=== PATIENT | female | born 1985 | race Caucasian/White ===

== ENCOUNTER 2020-06-15 12:51 | Emergency (ER) | payer SELFPAY ==
[2020-06-15] MEDS ORDERED: KETOROLAC 30 MG/ML INJ ONE (14:11)
[2020-06-15] MEDS ORDERED: NA CHLORIDE 0.9% 100 ML IV ONE (14:11)
[2020-06-15] MEDS ORDERED: NA CHLORIDE 0.9% 1,000 ML ONE (14:11)
[2020-06-15] MEDS ORDERED: METOCLOPRAMIDE 10 MG/2mL INJ ONE (14:11)
[2020-06-15] MEDS ORDERED: DIPHENHYDRAMINE 50 MG/ML VIAL ONE (14:11)
--- NOTE | 2020-06-15 14:20 | RAD REPORT ---
EXAM DESCRIPTION: CT - Head Brain Wo Cont - 06/15/2020 2:03 pm CLINICAL HISTORY: Headache COMPARISON: None. TECHNIQUE: Computed axial tomography of the head was obtained. IV contrast was not requested. All CT scans are performed using dose optimization technique as appropriate and may include automated exposure control or mA/KV adjustment according to patient size. FINDINGS: An intracranial bleed is not seen . The ventricles are normal in caliber. No extra-axial fluid collection is noted. Fluid within the sinuses/ mastoids is not seen. IMPRESSION: No acute intracranial abnormality is seen. If patient's symptoms persist MRI of the bra in would be recommended.
--- NOTE | 2020-06-15 14:54 | ER ---
Nurse's Notes [facility] Name: Arianna Titus Age: 35 yrs Sex: Female : 1985 Arrival Date: 06/15/2020 Time: 12:54 Bed 19 Private MD: Diagnosis: Headache Presentation: 06/15 13:04 Chief complaint: Patient states: [place] for 3 days. N/V this am. No fever. States her heart ll1 was racing this morning. Coronavirus screen: Client denies travel out of the [place] in the last 14 days. At this time, the client does not indicate any symptoms associated with coronavirus-19. Ebola Screen: Patient denies travel to an Ebola-affected area in the 21 days before illness onset. Initial Sepsis Screen: Does the patient meet any 2 criteria? HR > 90 bpm. Risk Assessment: Do you want to hurt yourself or someone else? Patient reports no desire to harm self or others. Onset of symptoms was June 13, 2020. 13:04 Method Of Arrival: Ambulatory ll1 13:04 Acuity: AARON 3 ll1 15:00 Initial Sepsis Screen: Does the patient have a suspected source of infection? No. ph Patient's initial sepsis screen is negative. Triage Assessment: 15:43 Headache History: The patient has had previous headaches and this one is similar to ph previous episodes. Pain: Also complains of nausea, photophobia. Historical: - Allergies: 13:03 No Known Allergies; ll1 - PSHx: 13:03 ; ll1 - Immunization history:: Flu vaccine is not up to date. - Social history:: Smoking status: Patient reports the use of cigarette tobacco products, smokes one-half pack cigarettes per day. Screenin:28 Abuse screen: Denies threats or abuse. Denies injuries from another. Nutritional ph screening: No deficits noted. Tuberculosis screening: No symptoms or risk factors identified. Fall Risk None identified. Assessment: 14:28 General: Appears in no apparent distress. uncomfortable, slender, well groomed, ph Behavior is calm, cooperative, appropriate for age, Denies fever, feeling ill. Pain: Complains of pain in forehead, right latter day and left latter day. Neuro: Level of Consciousness is awake, alert, obeys commands, Oriented to person, place, time, situation. Neuro: Reports headache since 3 days ago photophobia. Cardiovascular:. Cardiovascular: Capillary refill < 3 seconds in bilateral fingers Patient's skin is warm and dry. Respiratory: No deficits noted. GI: Reports nausea, vomiting, Patient currently denies abdominal pain. Derm: Skin is intact, is healthy with good turgor, Skin is pink, warm \T\ dry. Musculoskeletal: Circulation, motion, and sensation intact. Range of motion: intact in all extremities. 15:42 Reassessment: Patient appears in no apparent distress at this time. Patient and/or ph family updated on plan of care and expected duration. Pain level reassessed. Patient is alert, oriented x 3, equal unlabored respirations, skin warm/dry/pink. Patient states feeling better. Patient states symptoms have improved. Vital Signs: 13:04 BP 120 / 89; Pulse 120; Resp 18; Temp 98.4; Pulse Ox 99% ; Weight 54.43 kg; Height 5 ll1 ft. 3 in. (160.02 cm); Pain 9/10; 14:29 BP 113 / 88; Pulse 81; Resp 18; Pulse Ox 98% on R/A; ph 15:42 BP 111 / 78; Pulse 85; Resp 18; Temp 97.6; Pulse Ox 99% on R/A; ph 13:04 Body Mass Index 21.26 (54.43 kg, 160.02 cm) ll1 ED Course: 12:54 Patient arrived in ED. ds1 13:06 Triage completed. ll1 13:06 Arm band placed on Patient placed in an exam room, on a stretcher. ll1 13:11 Armin Kilgore NP is PHCP. pm1 13:11 Lorne Card MD is Attending Physician. pm1 13:11 Bozena Mcintyre, YFN is Primary Nurse. ph 14:04 CT Head Brain wo Cont In Process Unspecified. EDMS 14:29 Patient has correct armband on for positive identification. Bed in low position. Call ph light in reach. Side rails up X 1. Pulse ox on. NIBP on. Door closed. Noise minimized. Lights dimmed. Warm blanket given. Pillow given. 14:30 Inserted saline lock: 20 gauge in right antecubital area, using aseptic technique. ph 15:42 No provider procedures requiring assistance completed. IV discontinued, intact, No ph redness/swelling at site. Pressure dressing applied. Administered Medications: 14:20 Drug: NS 0.9% 1000 ml Route: IV; Rate: 1000 ml; Site: right antecubital; ph 15:30 Follow up: Response: No adverse reaction; IV Status: Completed infusion; IV Intake: ph 1000ml 14:21 Drug: Benadryl 25 mg Route: IVP; Site: right antecubital; ph 15:00 Follow up: Response: No adverse reaction ph 14:23 Drug: TORadol 30 mg Route: IVP; Site: right antecubital; ph 15:00 Follow up: Response: No adverse reaction; Pain is decreased ph 14:23 Drug: Reglan 10 mg Route: IVP; Site: right antecubital; ph 15:00 Follow up: Response: No adverse reaction ph 15:30 Drug: Decadron - Dexamethasone 10 mg Route: IVP; Site: right antecubital; ph 15:35 Follow up: Response: No adverse reaction ph Intake: 15:30 IV: 1000ml; Total: 1000ml. ph Outcome: 14:53 Discharge ordered by pm1 15:43 Discharged to home ambulatory. ph 15:43 Condition: improved 15:43 Discharge instructions given to patient, Instructed on discharge instructions, follow up and referral plans. Demonstrated understanding of instructions, follow-up care. 15:43 Patient left the ED. ph Signatures: Dispatcher [employer] [facility] Genia Preston ds1 Bozena Mcintyre RN RN ph Armin Kilgore, JO SAFETY INTERN pm1 Kenny Pierre RN RN ll1
--- NOTE | 2020-06-15 14:54 | EDPHYS ---
Physician Documentation [facility] Name: Arianna Titus Age: 35 yrs Sex: Female : 1985 Arrival Date: 06/15/2020 Time: 12:54 Bed 19 Private MD: ED Physician Lorne aCrd HPI: 06/15 14:28 This 35 yrs old Female presents to ER via Ambulatory with complaints of pm1 Headache, Nausea. 14:28 The patient complains of pain to the top of head, forehead, right yazidi and left pm1 yazidi. The patient describes the headache as aching. Onset: The symptoms/episode began/occurred 3 day(s) ago. Associated signs and symptoms: Pertinent positives: nausea, Pertinent negatives: fever, neck stiffness, paresthesias, vomiting, weakness. Severity of symptoms: in the emergency department the pain is unchanged. Headache History: Other lasting longer than normal. Typically Excedrin can break it but has not worked this time. The symptoms are alleviated by Darkened room, the symptoms are aggravated by lights, noise. The patient has experienced similar episodes in the past, several times. The patient has not recently seen a physician. Historical: - Allergies: 13:03 No Known Allergies; ll1 - PSHx: 13:03 ; ll1 - Immunization history:: Flu vaccine is not up to date. - Social history:: Smoking status: Patient reports the use of cigarette tobacco products, smokes one-half pack cigarettes per day. ROS: 14:28 Constitutional: Negative for fever, chills, and weight loss, Cardiovascular: Negative pm1 for chest pain, palpitations, and edema, Respiratory: Negative for shortness of breath, cough, wheezing, and pleuritic chest pain, Abdomen/GI: Negative for abdominal pain, nausea, vomiting, diarrhea, and constipation, Back: Negative for injury and pain, MS/Extremity: Negative for injury and deformity, Skin: Negative for injury, rash, and discoloration. 14:28 Neuro: Positive for headache. Exam: 14:28 Constitutional: This is a well developed, well nourished patient who is awake, alert, pm1 and in no acute distress. Head/Face: Normocephalic, atraumatic. Neck: Trachea midline, no thyromegaly or masses palpated, and no cervical lymphadenopathy. Supple, full range of motion without nuchal rigidity, or vertebral point tenderness. No Meningismus. 14:28 Back: No spinal tenderness. No costovertebral tenderness. Full range of motion. Skin: Warm, dry with normal turgor. Normal color with no rashes, no lesions, and no evidence of cellulitis. MS/ Extremity: Pulses equal, no cyanosis. Neurovascular intact. Full, normal range of motion. 14:28 Cardiovascular: Exam negative for acute changes, Rate: normal, Rhythm: regular, Pulses: no pulse deficits are appreciated. 14:28 Respiratory: Exam negative for acute changes, respiratory distress, shortness of breath. 14:28 Abdomen/GI: Exam negative for acute changes, Inspection: abdomen appears normal, Palpation: abdomen is soft and non-tender, in all quadrants. 14:28 Neuro: Exam negative for acute changes, Orientation: is normal, Mentation: is normal, Motor: is normal, moves all fours. Vital Signs: 13:04 BP 120 / 89; Pulse 120; Resp 18; Temp 98.4; Pulse Ox 99% ; Weight 54.43 kg; Height 5 ll1 ft. 3 in. (160.02 cm); Pain 9/10; 14:29 BP 113 / 88; Pulse 81; Resp 18; Pulse Ox 98% on R/A; ph 15:42 BP 111 / 78; Pulse 85; Resp 18; Temp 97.6; Pulse Ox 99% on R/A; ph 13:04 Body Mass Index 21.26 (54.43 kg, 160.02 cm) ll1 MDM: 13:43 Patient medically screened. pm1 14:49 Data reviewed: vital signs. Data interpreted: Pulse oximetry: on room air is 98 %. pm1 Interpretation: normal. 14:49 Counseling: I had a detailed discussion with the patient and/or guardian regarding: the pm1 historical points, exam findings, and any diagnostic results supporting the discharge/admit diagnosis, radiology results, the need for outpatient follow up, to return to the emergency department if symptoms worsen or persist or if there are any questions or concerns that arise at home. 14:49 ED course: 6/10 pain. Would like additional pain medications. Limited by rehabilitation pm1 drug limitations. Will give the patient decadron. 06/15 13:48 Order name: CT Head Brain wo Cont; Complete Time: 14:49 pm1 06/15 13:48 Order name: IV Saline Lock; Complete Time: 14:26 pm1 Administered Medications: 14:20 Drug: NS 0.9% 1000 ml Route: IV; Rate: 1000 ml; Site: right antecubital; ph 15:30 Follow up: Response: No adverse reaction; IV Status: Completed infusion; IV Intake: ph 1000ml 14:21 Drug: Benadryl 25 mg Route: IVP; Site: right antecubital; ph 15:00 Follow up: Response: No adverse reaction ph 14:23 Drug: TORadol 30 mg Route: IVP; Site: right antecubital; ph 15:00 Follow up: Response: No adverse reaction; Pain is decreased ph 14:23 Drug: Reglan 10 mg Route: IVP; Site: right antecubital; ph 15:00 Follow up: Response: No adverse reaction ph 15:30 Drug: Decadron - Dexamethasone 10 mg Route: IVP; Site: right antecubital; ph 15:35 Follow up: Response: No adverse reaction ph Disposition: 06/16 08:45 Co-signature as Attending Physician, Lorne Card MD I agree with the assessment and kdr plan of care. Disposition: 06/15/20 14:53 Discharged to Home. Impression: Headache. - Condition is Stable. - Discharge Instructions: General Headache Without Cause, Tension Headache, Adult. - Medication Reconciliation Form, Thank You Letter, Antibiotic Education, Prescription Opioid Use form. - Follow up: Emergency Department; When: As needed; Reason: Worsening of condition. Follow up: Private Physician; When: 2 - 3 days; Reason: Recheck today's complaints, Continuance of care, Re-evaluation by your physician. - Problem is new. - Symptoms have improved. Signatures: Dispatcher [employer] EDMS Lorne Card MD MD kdr Bozena Mcintyre RN RN ph Armin Kilgore, JO PODIATRIST pm1 Kenny Pierre RN RN ll1 Corrections: (The following items were deleted from the chart) 06/15 15:43 14:53 06/15/2020 14:53 Discharged to Home. Impression: Headache. Condition is Stable. ph Forms are Medication Reconciliation Form, Thank You Letter, Antibiotic Education, Prescription Opioid Use. Follow up: Emergency Department; When: As needed; Reason: Worsening of condition. Follow up: Private Physician; When: 2 - 3 days; Reason: Recheck today's complaints, Continuance of care, Re-evaluation by your physician. Problem is new. Symptoms have improved. pm1
[2020-06-15] MEDS ORDERED: dexAMETHasone 4 MG/ML VIAL ONE (15:27)
[2020-06-15 15:56] VITALS: BP 111/78; TEMP 97.6; O2SAT 99
== END 2020-06-15 15:43 | disposition home or self-care (01) ==
LOC: ER 12:51
DX: R51 Headache (principal); R11.0 Nausea; F17.210 Nicotine dependence, cigarettes, uncomplicated
CPT/HCPCS: 70450; 96361; 96374; 96375; 99284; J1200; J2765; J7030